=== PATIENT | female | born 1970 | race African-American/Black ===

== ENCOUNTER 2020-09-17 14:45 | Outpatient (REF) | payer OTHER, SELFPAY ==
--- NOTE | ~2020-09-17 | XR_ITS ---
EXAMINATION: XR CERVICAL SPINE CLINICAL INFORMATION: Cervical radiculitis. COMPARISON: None TECHNIQUE: Cervical spine is imaged in 6 views: AP, odontoid, Fuchs, lateral, and bilateral oblique. FINDINGS: There is normal cervical lordosis. The vertebral bodies are normal in height. There is no cervical vertebral compression, spondylolisthesis, disc narrowing, destructive process, or prevertebral soft tissue swelling. The odontoid appears intact. No focal joint, disc narrowing or erosive change. Borderline anterior spur at C3. Oblique views show no osseous narrowing of the neural foramina. There is bilateral borderline spurring at the C7-T1 neural foramina. XR/XR cervical spine 4V IMPRESSION: Unremarkable examination.
== END 2020-09-17 14:46 | disposition home or self-care (01) ==
LOC: HO.XRAY 14:45
PROVIDERS: PCP Internal Medicine; Visit Provider Psychiatry & Neurology Neurology
DX: M54.12 Radiculopathy, cervical region (principal)
CPT/HCPCS: 72050